=== PATIENT | female | born 1955 | race Caucasian/White ===

== ENCOUNTER 2017-01-07 14:27 | Outpatient (CLI) | payer MEDICAID ==
--- NOTE | 2017-01-07 15:42 | XRAY Report ---
THREE-VIEW RIGHT FOOT: 01/07/2017 CLINICAL INDICATION: Pain. FINDINGS: AP, lateral, oblique views of the right foot demonstrate postoperative changes in the head of the 1st metatarsal and the proximal phalanx of the great toe. Mild osteoarthritis is present. A n os naviculare is incidentally noted. There is no evidence of acute fracture or dislocation. IMPRESSION: POSTOPERATIVE CHANGES. INCIDENTAL OS NAVICULARE. JOB #: [id number] EXT JOB #:[id number]
== END 2017-01-07 14:28 | disposition home or self-care (01) ==
LOC: DI 14:27
PROVIDERS: ATTEND Podiatrist
DX: M79.671 Pain in right foot (principal)

== ENCOUNTER 2017-06-24 14:50 | Outpatient (CLI) | payer MEDICAID | END 2017-06-24 14:51 | disposition home or self-care (01) | LOC: SC 14:50 | PROVIDERS: ATTEND Internal Medicine Pulmonary Disease | DX: G47.33 Obstructive sleep apnea (adult) (pediatric) (principal) | CPT/HCPCS: 99203; 99212 ==

== ENCOUNTER 2017-07-29 13:17 | Outpatient (CLI) | payer MEDICAID | END 2017-07-29 13:18 | disposition home or self-care (01) | LOC: SC 13:17 | PROVIDERS: ATTEND Internal Medicine Pulmonary Disease | DX: G47.33 Obstructive sleep apnea (adult) (pediatric) (principal) | CPT/HCPCS: 99212; 99213 ==

== ENCOUNTER 2017-12-11 14:43 | Outpatient (CLI) | payer OTHER ==
--- NOTE | 2017-12-12 14:59 | CT Report ---
Reason: FOLLOW UP NODULE Procedure Date: 12/11/2017 Accession Number: [id number] / [id number] Procedure: CT - Chest/Lung Screen Low Dose W/O CPT Code: FULL RESULT: EXAM CT LUNG SCREEN EXAM DATE: 12/11/2017 02:55 PM. HISTORY: 62-year-old patient with history of smoking. History of lung nodules. Cough. History of fundoplication. High blood pressure. Currently smoking: Yes. Years since quittin years. COMPARISON: 08/01/2016. 06/18/2016. 12/28/2015. 12/22/2014. TECHNIQUE: CT examination of the entire thorax without contrast was performed using low-dose technique. Thin section coronal, axial, sagittal and MIP axial images were obtained. In accordance with CT protocol optimization, one or more of the following dose reduction techniques were utilized for this exam: automated exposure control, adjustment of mA and/or KV based on patient size, or use of iterative reconstructive technique. FINDINGS: Nodules: Right upper lobe: None. Right middle lobe: None. Right lower lobe: 6 mm part solid nodular density right lower lobe (image 84, series 4) without significant change. Left upper lobe: None. Left lower lobe: None. Emphysema: Emphysematous changes again seen. Pleura: Unremarkable. Aorta: Mild degree of thoracic aortic calcified plaque. No evidence of aneurysm. Mediastinum: Visualized thyroid gland is unremarkable. Subcentimeter mediastinal lymph nodes are again seen, the largest precarinal measuring 7 mm, as before. Trace pericardial effusion. Postoperative changes again seen involving the GE junction. Coronary calcifications: Mild degree of coronary calcified plaque. Other pulmonary findings: Bronchiectatic changes in the right lower lobe again seen with mild bronchial thickening and some mucus/fluid opacification of dilated peripheral bronchi. Faint peripheral septal thickening noted in the lower lobes although unchanged. Faint right lower lobe groundglass opacities are again seen although less prominent. Other extrapulmonary findings: Included portions of the liver, spleen, adrenals, pancreas and kidneys are unremarkable. Status post cholecystectomy. Included portions of the stomach, small bowel and colon are normal. Abdominal aortic calcified atheromatous plaque. Degenerative changes of the thoracic spine. Mild thoracic scoliosis. IMPRESSION: Lung-RADS ASSESSMENT CATEGORY: 3 - probably benign. Probability of malignancy: 1-2% RECOMMENDATION: Recommend low-dose chest CT follow-up in 6 months. [facility]
== END 2017-12-11 14:44 | disposition home or self-care (01) ==
LOC: DI 14:43
PROVIDERS: ATTEND Internal Medicine
DX: Z12.2 Encounter for screening for malignant neoplasm of respiratory organs (principal); R91.1 Solitary pulmonary nodule; J43.9 Emphysema, unspecified; J47.9 Bronchiectasis, uncomplicated; F17.210 Nicotine dependence, cigarettes, uncomplicated